=== PATIENT | female | born 1985 | race Caucasian/White ===

== ENCOUNTER 2025-09-08 14:33 | Emergency (ER) | payer SELFPAY ==
[2025-09-08 14:35] VITALS: BP 124/87; PULSE 98; RESP 16; TEMP 36.8; O2SAT 98
--- NOTE | 2025-09-08 14:49 | ED.RN ---
THIS NURSE INFORMED BY HRO AND [facility] THAT PT. HAD MENTIONED SEEING BLOOD ON HER HANDS, WITH NO OBVIOUS BLOOD NOTED, WELL , TALKING WITH CHERYL
--- NOTE | 2025-09-08 14:50 | ED.RN ---
THIS NURSE INFORMED BY HRO THAT PT. IS SMOKING OUTSIDE THE DEPARTMENT AND THAT HE IS GOING TO CHECK ON HER.
--- NOTE | 2025-09-08 15:17 | ED.RN ---
PT. NAME CALLED IN ED TRIAGE AND OUTSIDE OF DEPARTMENT DOORS. LWBS AT 1517. REGISTRATION NOTIFIED.
== END 2025-09-08 15:16 | disposition left against medical advice (07) ==
LOC: ED 15:22
DX: Z53.21 Procedure and treatment not carried out due to patient leaving prior to being seen by health care provider (principal)
CPT/HCPCS: 99281

== ENCOUNTER 2025-09-15 09:21 | Inpatient (IN) | payer MEDICAID, SELFPAY ==
[2025-09-15] VITALS (20 sets, daily range): BP systolic 92–142; BP diastolic 53–110; PULSE 80–94; RESP 14–22; TEMP 36.6–37.1; O2SAT 95–100; BMI 29.1; BMI 29.5
--- NOTE | 2025-09-15 09:33 | RAD_ITS ---
PROCEDURE: CHEST 1 VIEW (PORTABLE) 09/15/2025 REASON FOR EXAM: OD TECHNIQUE: Frontal view of the chest. COMPARISON: None. RAD/Chest 1 View (Portable) IMPRESSION: Lungs appear clear. No pleural effusion or pneumothorax is noted. The cardiomediastinal silhouette is within the normal range. No significant osseous abnormality is noted. Negative examination. Reading Location: [place] [address]
--- NOTE | 2025-09-15 09:34 | EKG12_ITS ---
Test Reason : OD Blood Pressure : */* mmHG Vent. Rate : 87 BPM Atrial Rate : 87 BPM P-R Int : 132 ms QRS Dur : 78 ms QT Int : 382 ms P-R-T Axes : 72 69 39 degrees QTcB Int : 459 ms Normal sinus rhythm Possible Left atrial enlargement Borderline ECG No previous ECGs available Confirmed by Lencho Rueda ([id number]), assistant editor JASWINDER COLON ([id number]) on 09/19/2025 11:40:16 AM Also confirmed by Lencho Rueda ([id number]), assistant editor JASWINDER COLON ([id number]) on 09/20/2025 10:10:34 AM Referred By: CLAUDIA Confirmed By: Lencho Rueda
--- NOTE | 2025-09-15 09:37 | EX.ED.VIS.PS ---
HPI HPI - Psych History of Present Illness Chief Complaint: Mental Health Narrative Narrative: Pt is a 40-year-old female who is presenting this morning with suicidal, homicidal, and psychosis. Patient took a large amount of sleeping medicine that contained 50 mg of Benadryl last evening. Patient presented by EMS. Patient states that she took a half a bottle of Benadryl last night around 10 PM. Patient is evaluated in the ER approximately 12 hours later. Patient has unknown reason why she took the medicine. Patient says that she has tried her to kill herself in the past, she was chronically her self last night. There was comments made by EMS that she was making homicidal threats to her ex-. Also EMS reported that patient is having episodes of psychosis, stating that the government is out to get her, there is other agencies that are hunting her, and other delusional thoughts. For me, patient is somnolent, pleasant, GCS 14, ANO x 3. 1 for eye closure she was sleeping when I walked into the room but open up her eyes to verbal stimuli. Patient states she is having vomiting, No headache or neck pain. No chest pain or shortness of breath. No significant abdominal pain. No other acute complaints. No falls that she is aware of. Patient states that she has a history of depression and anxiety. Patient says that she is somewhat compliant with her medication. Patient states she is from her , she has 3 children. Patient currently not working. No alcohol. She smokes half a pack of cigarettes a day. No illicit drug use. Patient has tried herself before. Patient denies any other medication that she overdosed on today. Patient did not cut herself. Patient arrived by EMS. Unknown who called 911. REVIEW OF SYSTEMS: Unless otherwise stated in this report the patient's positive and negative responses for review of systems for constitutional, eyes, ENT, cardiovascular, respiratory, gastrointestinal, neurological, , musculoskeletal, and integument systems and related systems to the presenting problem are either stated in the history of present illness or were not pertinent or were negative for the symptoms and/or complaints related to the presenting medical problem. Nurse's notes and vital signs reviewed. The patient is not hypoxic. Vital signs reviewed and patient is not hypoxic. General: The patient appears well and in no apparent distress. Patient is resting comfortably on cart. Not toxic, lethargic, or listless. Skin: Warm, dry, no pallor noted. There is no rash noted. Patient has multiple abrasions on bilateral knees, no swelling, no ecchymosis, no pain. Patient's unknown how these abrasions were on her knees. Head: Normocephalic, atraumatic; patient has no scalp hematoma. No midline or paracervical tenderness palpation. Forage of motion of cervical spine no difficulty. Eye: Normal conjunctiva, no drainage, EOMI. PERRL. 4/2 equal, bilateral. Ears, Nose, Mouth, and Throat: oral mucosa is moist. Nares patent. Mouth without vesicles. No hemotympanum, alexander signs, raccoon eyes. Cardiovascular: Regular Rate and Rhythm, no murmurs, gallops, or rubs Respiratory: Patient is in no distress, no accessory muscle use, lungs are clear to auscultation, no wheezing, rales or rhonchi Back: non-tender, no CVA tenderness bilaterally to percussion. NO CTLS midline or paraspinal tenderness to palpation. GI: Soft, obese, no flank pain bilateral, no peritoneal signs, no tenderness to palpation, no masses appreciated. No rebound, guarding, or rigidity noted. No midepigastric tenderness to palpation, no peritoneal signs, abdomen soft, Musculoskeletal: The patient has full range of motion of all extremities and joints with no difficulty. Patient has no motor, no sensory deficits. Neurological: A&O x4, normal speech, no focal neurological deficits. Psychiatric: Cooperative, flat affect; currently not hallucinating, delusional, paranoid PFSH PFSH Home Medications ?Medication ?Instructions ?Recorded ?Last Taken ?Type NK 09/15/25 Unknown History Allergy/AdvReac Type Severity Reaction Status Date / Time codeine AdvReac Mild BLOATING Verified 09/15/25 09:22 Penicillins (PCN) AdvReac Mild BLOATING Verified 09/15/25 09:22 EXAM Physical Exam Const Vital Signs: 09/15/25 09:22 09/15/25 11:21 Temperature 98.2 F Temperature Source Oral Pulse Rate 88 84 Respiratory Rate 14 14 Blood Pressure 136/59 H 129/89 H Blood Pressure Mean 84 102 Pulse Ox 97 99 Oxygen Delivery Method Room Air Room Air MDM MDM MDM Narrative Medical decision making narrative: Patient seen and examined: IV, labs, urine, tox protocol. Differential diagnosis includes but is not limited to: Suicidal ideation, homicidal ideation, psychosis, paranoia, dehydration, MARIAN, liver failure, kidney failure, dehydration, electrolyte abnormality, Relevant laboratory interpretation: Patient's CK is 3000. Urine drug screen is positive for benzos, patient denies taking any type of benzos. Radiological studies: Chest x-ray shows no acute cardiopulmonary disease, no infiltrate, no effusion. X-ray was reviewed independently by Dr. Gan Reevaluation: Patient felt somewhat better after IV fluids and Zofran. Patient has not had vomiting in the ER. EKG interpretation. Normal sinus rhythm at 87 beats a minute. Normal axis deviation. No acute ST elevation, no acute ectopy. QTc of 459. EKG was reviewed independently by Dr. Gan Social barriers to healthcare: There are no food insecurities, there is no issue with transportation, there are no insurance barriers Disposition: Patient will be admitted for observation to ICU for intentional overdose, psychosis, suicidal, homicidal, Patient has been medically cleared. Case was reviewed with poison control. Recommendations from poison control is to observe patient for up to 24 hours. Patient could have taken approximately 2500 mg of Benadryl, unknown time. Repeat EKG in several hours. 1125 patient will be admitted to the ICU to Dr. Perez Critical care time 33 minutes exclusive from separate billable procedures that were performed. The following was considered in the determination of critical care but not limited to the level of medical decision making, intensive cardiac and/or respiratory monitoring, frequent vital sign monitoring, evaluation of laboratory studies, evaluation of radiographic studies, oxygen monitoring, and constant monitoring and speaking to family at bedside Lab Data Labs: Laboratory Results - last 24 hr 09/15/25 09/15/25 09/15/25 09:32 09:45 09:49 WBC 17.1 H RBC 4.92 Hgb 14.4 Hct 43.5 MCV 88.4 MCH 29.3 MCHC 33.1 RDW Std Deviation 47.6 H RDW Coeff of Lacie 14.7 H Plt Count 196 MPV 11.0 Immature Gran % (Auto) 0.300 Neut % (Auto) 79.3 H Lymph % (Auto) 13.4 L [place] % (Auto) 6.7 Eos % (Auto) 0.1 Baso % (Auto) 0.2 Absolute Neuts (auto) 13.6 H Absolute Lymphs (auto) 2.29 Nucleated RBC % 0 Total Creatine Kinase 3096 H TSH 2.010 Serum , Qual NEGATIVE Urine Color Yellow Urine Clarity Clear Urine pH 6.0 Ur Specific [place] 1.020 Urine Protein 30 H Urine Glucose (UA) Normal Urine Ketones 15 H Urine Occult Blood 25 H Urine Nitrite Negative Urine Bilirubin Negative Urine Urobilinogen Normal Ur Leukocyte Esterase Negative Urine RBC 0 SEEN Urine WBC 0 SEEN Ur Squamous Epith Cells 0-5 SEEN Urine Bacteria 0 SEEN Urine Mucus 0 SEEN Urine Opiates Screen NEGATIVE U Buprenorphine Qual NEGATIVE Ur Oxycodone Screen NEGATIVE Urine Methadone Screen NEGATIVE Urine Fentanyl Screen NEGATIVE Acetaminophen < 5.0 L Ur Barbiturates Screen NEGATIVE Ur Phencyclidine Scrn NEGATIVE Ur Amphetamines Screen NEGATIVE U Benzodiazepines Scrn PRESUMPTIVE POSITIVE Urine Cocaine Screen NEGATIVE U Cannabinoids Screen NEGATIVE Ethyl Alcohol < 10.1 09/15/25 11:00 WBC RBC Hgb Hct MCV MCH MCHC RDW Std Deviation RDW Coeff of Lacie Plt Count MPV Immature Gran % (Auto) Neut % (Auto) Lymph % (Auto) [place] % (Auto) Eos % (Auto) Baso % (Auto) Absolute Neuts (auto) Absolute Lymphs (auto) Nucleated RBC % Total Creatine Kinase TSH Serum , Qual NEGATIVE Urine Color Urine Clarity Urine pH Ur Specific [place] Urine Protein Urine Glucose (UA) Urine Ketones Urine Occult Blood Urine Nitrite Urine Bilirubin Urine Urobilinogen Ur Leukocyte Esterase Urine RBC Urine WBC Ur Squamous Epith Cells Urine Bacteria Urine Mucus Urine Opiates Screen U Buprenorphine Qual Ur Oxycodone Screen Urine Methadone Screen Urine Fentanyl Screen Acetaminophen Ur Barbiturates Screen Ur Phencyclidine Scrn Ur Amphetamines Screen U Benzodiazepines Scrn Urine Cocaine Screen U Cannabinoids Screen Ethyl Alcohol Radiography Diagnostic Testing: Clinical Impression(s) from Imaging Studies Chest X-Ray 09/15/25 09:33 IMPRESSION: Lungs appear clear. No pleural effusion or pneumothorax is noted. The cardiomediastinal silhouette is within the normal range. No significant osseous abnormality is noted. Negative examination. Reading Location: [place] [id number] Discharge Plan Triage Chief Complaint: Mental Health ED Provider: Chad Gan Dx/Rx/DC Orders Clinical Impression: Intentional overdose, Rhabdomyolysis, Abrasion of both knees, Suicidal ideations, Psychosis, Paranoia Prescriptions: No Action NK Primary Care Provider: Care Physician,No Primary Referrals: Care Physician,No Primary [Primary Care Provider, Medical] Print Language: Croatian
[2025-09-15] MEDS: 0.9% Normal Saline (500mL Bag) 500 ML 999 ML IV (09:51)
--- NOTE | 2025-09-15 09:53 | ED.RN ---
CAlled poison control. HAve to watch pt for seizures. Administer Benzos if seizes. Recommendation of observation for a minimum of 6 hours but more recommending overnight stay. Approximate amount of consumption is 2500mg
[2025-09-15 10:01] LABS: Hematocrit 43.5 % (37-47); Hemoglobin 14.4 g/dL (12.0-15.0); Immature Granulocytes Count 0.050 X10^3/uL (0.0-0.0); Mean Corp Hgb Conc 33.1 g/dL (32-36); Mean Corpuscular Volume 88.4 fL (81-99); Mean Platelet Vol. 11.0 fl (6.2-12.0); NRBC Flagged by Analyzer 0 % (0-5); Platelet Count 196 K/mm3 (150-450); RBC Distribution Width CV 14.7 % (11.6-14.6); RBC Distribution Width SD 47.6 fl (35.1-43.9); Red Blood Count 4.92 M/mm3 (4.2-5.4); White Blood Count 17.1 K/mm3 (4.4-11.0)
[2025-09-15 10:06] LABS: Barbiturate Urine NEGATIVE (< 200 ng/mL); Benzodiazepine Urine PRESUMPTIVE POSITIVE (< 200 ng/mL); PCP Urine NEGATIVE (< 25 ng/mL); THC Urine NEGATIVE (< 50 ng/mL)
[2025-09-15 10:08] LABS: Acetaminophen (Tylenol) Level < 5.0 ug/mL (8.0-19.0); Alcohol, Blood (Medical)-Serum < 10.1 mg/dL (<=10.0)
[2025-09-15 10:33] LABS: Internal QC Validated? YES +Cl - CLEAR BKGD; Pregnancy, Serum, hCG Quali. NEGATIVE Negative
[2025-09-15 10:34] LABS: CPK Total, Creatine Kinase 3096 U/L (24-195)
[2025-09-15 11:08] LABS: Mucous, Urine 0 SEEN /hpf (<or=2+); Red Blood Cells-Urine 0 SEEN /hpf (0-5)
[2025-09-15 11:10] LABS: Color, Urine Yellow (Yellow); Glucose, Dipstick Normal (Normal); Ketone-Dipstick 15 mg/dl (Negative); Leukocyte Esterase-Dipstick Negative /ul (Negative); Nitrite-Dipstick Negative (Negative); Occult Blood-Urine 25 /ul (Negative); Protein-Dipstick 30 mg/dl (Negative); Specific Gravity, Urine 1.020 (1.002-1.030); Urine Bilirubin Dipstick Negative (Negative)
[2025-09-15 11:17] LABS: Squamous Epithelial Cells - UA 0-5 SEEN /hpf (5-10)
[2025-09-15 11:19] LABS: Internal QC Validated? YES +Cl - CLEAR BKGD; Pregnancy, Serum, hCG Quali. NEGATIVE Negative
[2025-09-15] MEDS: 0.9% Normal Saline (1000mL) 1,000 ML 999 ML IV (11:20)
--- NOTE | 2025-09-15 11:28 | HP.PCM.HOS_ITS ---
HPI - General General Date of Admission: 09/15/25 Date of Service: 09/15/25 Chief Complaint: Altered mental status HPI Narrative KARY BAKER, is a 40 F with past medical history significant for previous evaluation for suicidal attempt as well as psychotic episodes who was brought to the emergency department in an apparent suicide attempt. Patient was reported to have taken a bottle of sleep aid containing 50 mg of Benadryl. She apparently took 25 tablets. She presented to the emergency department 12 hours later after having made homicidal threats to her ex-. Patient was evaluated in the ED, Poison control was called and recommendation was made for patient to be admitted to the intensive care unit for subsequent eval. Patient was also found to have elevated CPK levels consistent with rhabdo. Admitted to the intensive care unit for subsequent [facility] Home Medications ?Medication ?Instructions ?Recorded ?Last Taken ?Type NK 09/15/25 Unknown History Allergy/AdvReac Type Severity Reaction Status Date / Time codeine AdvReac Mild BLOATING Verified 09/15/25 09:22 Penicillins (PCN) AdvReac Mild BLOATING Verified 09/15/25 09:22 Social History Smoking Status: Current every day smoker tobacco type: cigarettes ROS ROS Narrative Difficult to obtain in view of patient being somnolent Patient's Goals Of Care . What would you like to achieve or improve as a result of your hospital stay?: U mala to obtain given patient being somnolent Vital Signs Vital Signs Vital Signs: 09/15/25 09:22 09/15/25 11:21 Temperature 98.2 F Temperature Source Oral Pulse Rate 88 84 Respiratory Rate 14 14 Blood Pressure 136/59 H 129/89 H Blood Pressure Mean 84 102 Pulse Ox 97 99 Oxygen Delivery Method Room Air Room Air Weight Weight: 77 kg Body Mass Index (BMI) 29.1 Physical Exam Narrative GENERAL: Lethargic but easily aroused HEENT: Atraumatic; normocephalic EYES; Anicteric, Normal Conjunctiva NECK; supple, normal thyroid, RESPIRATORY: Diminished to auscultation CARDIOVASCULAR: Regular S1 S2, GI: soft, normoactive bowel sounds, : No Renal angle tenderness; EXTREMITIES: No edema, no clubbing, MUSCULOSKELETAL: no muscle wasting NEURO: Lethargic but appears to move all extremities with no lateralizing signs. SKIN: Abrasions on lower extremity PSYCH; lethargic Results Lab / Micro Data 09/15/25 09:45 Labs: Laboratory Results - last 24 hr 09/15/25 09:32: Urine Color Yellow, Urine Clarity Clear, Urine pH 6.0, Ur Specific [place] 1.020, Urine Protein 30 H, Urine Glucose (UA) Normal, Urine Ketones 15 H, Urine Occult Blood 25 H, Urine Nitrite Negative, Urine Bilirubin Negative, Urine Urobilinogen Normal, Ur Leukocyte Esterase Negative, Urine RBC 0 SEEN, Urine WBC 0 SEEN, Ur Squamous Epith Cells 0-5 SEEN, Urine Bacteria 0 SEEN, Urine Mucus 0 SEEN, Urine Opiates Screen NEGATIVE, U Buprenorphine Qual NEGATIVE, Ur Oxycodone Screen NEGATIVE, Urine Methadone Screen NEGATIVE, Urine Fentanyl Screen NEGATIVE, Ur Barbiturates Screen NEGATIVE, Ur Phencyclidine Scrn NEGATIVE, Ur Amphetamines Screen NEGATIVE, U Benzodiazepines Scrn PRESUMPTIVE POSITIVE, Urine Cocaine Screen NEGATIVE, U Cannabinoids Screen NEGATIVE 09/15/25 09:45: WBC 17.1 H, RBC 4.92, Hgb 14.4, Hct 43.5, MCV 88.4, MCH 29.3, MCHC 33.1, RDW Std Deviation 47.6 H, RDW Coeff of Lacie 14.7 H, Plt Count 196, MPV 11.0, Immature Gran % (Auto) 0.300, Neut % (Auto) 79.3 H, Lymph % (Auto) 13.4 L, [place] % (Auto) 6.7, Eos % (Auto) 0.1, Baso % (Auto) 0.2, Absolute Neuts (auto) 13.6 H, Absolute Lymphs (auto) 2.29, Nucleated RBC % 0, Total Creatine Kinase 3096 H, TSH 2.010, Acetaminophen < 5.0 L, Ethyl Alcohol < 10.1 09/15/25 09:49: Serum , Qual NEGATIVE 09/15/25 11:00: Serum , Qual NEGATIVE Imaging Radiology Impression Chest X-Ray 09/15/25 09:33 IMPRESSION: Lungs appear clear. No pleural effusion or pneumothorax is noted. The cardiomediastinal silhouette is within the normal range. No significant osseous abnormality is noted. Negative examination. Reading Location: [place] [address] Assessment & Plan Assessment/Plan (1) Psychosis: (2) Rhabdomyolysis: (3) Intentional overdose: (4) Paranoia: (5) Suicidal ideations: PLAN: Plan Patient is a 40-year-old admitted with altered mental status. 1. Acute toxic encephalopathy ? From intentional drug overdose in an apparent suicide attempt. Patient admitted to the intensive care unit for observationper Poison control recommendation. 2. Intentional drug overdose?in an apparent suicide attempt Patient has been admitted to the intensive care unit suicide precautions initiated 3. Psychosis and paranoia ? Patient to be evaluated by mental health when medically stable 4. Acute rhabdomyolysis ? Admitted to monitored bed started on IV hydration. Repeat CPK levels and BMP ordered for a.m. 5.Tobacco dependence ? Patient to be counseled on cessation when much more awake 6. DVT prophylaxis ? Low risk Charges/Coding Visit Charges Inpatient E&M: 47982 Init Hosp L2
[2025-09-15] MEDS: 0.9% Normal Saline (1000mL) 1,000 ML 150 ML IV ×2 (12:26→17:44)
[2025-09-15] MEDS: Nicotine (PBKC) 14 MG Patch TD (17:44)
[2025-09-15] MEDS: Nicotine (PBKC) 21 MG Patch TD (20:48)
[2025-09-16] VITALS (25 sets, daily range): BP systolic 97–148; BP diastolic 51–92; PULSE 64–88; RESP 17–25; TEMP 36.7–37; O2SAT 94–99; BMI 29.6; BMI 29.5
[2025-09-16] MEDS: 0.9% Normal Saline (1000mL) 1,000 ML 150 ML IV ×4 (01:32→21:31)
[2025-09-16] MEDS: 0.9% Saline Lock 10 ML Syringe IV (04:49)
[2025-09-16 05:06] LABS: Hematocrit 36.5 % (37-47); Hemoglobin 11.8 g/dL (12.0-15.0); Immature Granulocytes Count 0.020 X10^3/uL (0.0-0.0); Mean Corp Hgb Conc 32.3 g/dL (32-36); Mean Corpuscular Volume 89.7 fL (81-99); Mean Platelet Vol. 11.7 fl (6.2-12.0); NRBC Flagged by Analyzer 0 % (0-5); POSITIVE COUNT YES; RBC Distribution Width CV 15.0 % (11.6-14.6); RBC Distribution Width SD 49.8 fl (35.1-43.9); Red Blood Count 4.07 M/mm3 (4.2-5.4); White Blood Count 9.9 K/mm3 (4.4-11.0)
[2025-09-16 05:34] LABS: Anion Gap 10 (5-15); BUN 11 mg/dL (4-19); BUN/Creat Ratio 13.6 RATIO (10-20); CPK Total, Creatine Kinase 1244 U/L (24-195); Calcium,Total 7.8 mg/dL (7.6-11.0); Carbon Dioxide 21.4 mmol/L (21.0-32.0); Chloride 109 mmol/L (98-108); Estimated Creatinine Clearance 93.88 ml/min (50-250); Glucose 98 mg/dL (70-99); Magnesium 2.2 mg/dL (1.5-2.2); Potassium 3.9 mmol/L (3.3-5.1)
[2025-09-16 05:38] LABS: Differential Indicated SCAN CRITERIA MET
[2025-09-16 05:40] LABS: Differential Comment SCANNED
--- NOTE | 2025-09-16 07:28 | PCM.PN.HOSP ---
Reason for Visit Chief Complaint: Altered mental status Subjective Subjective Patient is a 40-year-old lady admitted in an intentional drug overdose of Benadryl. Was found to have rhabdomyolysis admission. Admitted to the intensive care unit where patient is currently being managed. Seen this a.m. patient is restless complaining of epigastric pain as well as pain in the knee and hips. Patient is however able to ambulate Objective Data Objective Data Vital Signs: Vital Signs Temp Pulse Resp BP Pulse Ox O2 Del Method 98.4 F 79 19 H 107/67 98 Room Air 09/16/25 03:00 09/16/25 07:00 09/16/25 07:00 09/16/25 07:00 09/16/25 07:15 09/16/25 07:15 Oxygen Delivery Method Room Air Weight: 78.6 kg Body Mass Index (BMI) 29.5 Intake & Output: Intake and Output for Last 24 Hours 09/14/25 09/15/25 09/16/25 23:59 23:59 23:59 Intake Total 2295 / 2295 1000 / 1000 Balance 2295 / 2295 1000 / 1000 Lab / Micro Data 09/16/25 04:37 09/16/25 04:37 Labs: Laboratory Results - last 24 hr 09/15/25 09:32: Urine Color Yellow, Urine Clarity Clear, Urine pH 6.0, Ur Specific [place] 1.020, Urine Protein 30 H, Urine Glucose (UA) Normal, Urine Ketones 15 H, Urine Occult Blood 25 H, Urine Nitrite Negative, Urine Bilirubin Negative, Urine Urobilinogen Normal, Ur Leukocyte Esterase Negative, Urine RBC 0 SEEN, Urine WBC 0 SEEN, Ur Squamous Epith Cells 0-5 SEEN, Urine Bacteria 0 SEEN, Urine Mucus 0 SEEN, Urine Opiates Screen NEGATIVE, U Buprenorphine Qual NEGATIVE, Ur Oxycodone Screen NEGATIVE, Urine Methadone Screen NEGATIVE, Urine Fentanyl Screen NEGATIVE, Ur Barbiturates Screen NEGATIVE, Ur Phencyclidine Scrn NEGATIVE, Ur Amphetamines Screen NEGATIVE, U Benzodiazepines Scrn PRESUMPTIVE POSITIVE, Urine Cocaine Screen NEGATIVE, U Cannabinoids Screen NEGATIVE 09/15/25 09:45: WBC 17.1 H, RBC 4.92, Hgb 14.4, Hct 43.5, MCV 88.4, MCH 29.3, MCHC 33.1, RDW Std Deviation 47.6 H, RDW Coeff of Lacie 14.7 H, Plt Count 196, MPV 11.0, Immature Gran % (Auto) 0.300, Neut % (Auto) 79.3 H, Lymph % (Auto) 13.4 L, [place] % (Auto) 6.7, Eos % (Auto) 0.1, Baso % (Auto) 0.2, Absolute Neuts (auto) 13.6 H, Absolute Lymphs (auto) 2.29, Nucleated RBC % 0, Total Creatine Kinase 3096 H, TSH 2.010, Acetaminophen < 5.0 L, Ethyl Alcohol < 10.1 09/15/25 09:49: Serum , Qual NEGATIVE 09/15/25 11:00: Serum , Qual NEGATIVE 09/16/25 04:37: WBC 9.9, RBC 4.07 L, Hgb 11.8 L, Hct 36.5 L, MCV 89.7, MCH 29.0, MCHC 32.3, RDW Std Deviation 49.8 H, RDW Coeff of Lacie 15.0 H, Plt Count TNP, MPV 11.7, Immature Gran % (Auto) 0.200, Neut % (Auto) 54.1, Lymph % (Auto) 37.1, [place] % (Auto) 7.4, Eos % (Auto) 1.0, Baso % (Auto) 0.2, Absolute Neuts (auto) 5.3, Absolute Lymphs (auto) 3.66, Nucleated RBC % 0, Differential Comment SCANNED, Platelet Estimate ADEQUATE, Sodium 140, Potassium 3.9, Chloride 109 H, Carbon Dioxide 21.4, Anion Gap 10, BUN 11, Creatinine 0.80, Estim Creat Clear Calc 93.88, Est GFR (MDRD) Non-Af 96, BUN/Creatinine Ratio 13.6, Glucose 98, Calcium 7.8, Phosphorus 2.6 L, Magnesium 2.2, Total Creatine Kinase 1244 H Radiography Diagnostic Testing: Radiology Impression Chest X-Ray 09/15/25 09:33 IMPRESSION: Lungs appear clear. No pleural effusion or pneumothorax is noted. The cardiomediastinal silhouette is within the normal range. No significant osseous abnormality is noted. Negative examination. Reading Location: [place] [address] Physical Exam Narrative GENERAL: Restless HEENT: Atraumatic; normocephalic EYES; Anicteric, Normal Conjunctiva NECK; supple, normal thyroid, RESPIRATORY: Diminished to auscultation CARDIOVASCULAR: Regular S1 S2, GI: soft, normoactive bowel sounds, : No Renal angle tenderness; EXTREMITIES: No edema, no clubbing, MUSCULOSKELETAL: no muscle wasting NEURO: Lethargic but appears to move all extremities with no lateralizing signs. SKIN: Abrasions on lower extremities?knees PSYCH; lethargic Assessment & Plan Assessment/Plan (1) Psychosis: (2) Rhabdomyolysis: (3) Intentional overdose: (4) Paranoia: (5) Suicidal ideations: PLAN: Plan Patient is a 40-year-old admitted with altered mental status. 1. Acute toxic encephalopathy ? From intentional drug overdose in an apparent suicide attempt. Patient admitted to the intensive care unit for observationper Poison control recommendation. ? 09/16/2025 remains in ICU with a sitter by the side 2. Intentional drug overdose?in an apparent suicide attempt Patient has been admitted to the intensive care unit suicide precautions initiated 3. Psychosis and paranoia ? Patient to be evaluated by mental health when medically stable 4. Acute rhabdomyolysis ? Admitted to monitored bed started on IV hydration. Repeat CPK levels and BMP ordered for a.m. ? CPK levels remain elevated we will continue with current IV 5.Tobacco dependence ? Patient to be counseled on cessation when much more awake 6. DVT prophylaxis ? Low risk 7. Suspected gastritis -patient placed on PPI Charges/Coding Visit Charges Inpatient E&M: 01243 Subs Hosp L2
[2025-09-16] MEDS: Nicotine (PBKC) 21 MG Patch TD (09:29)
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
--- NOTE | 2025-09-16 10:44 | CASEMGMT ---
Social Work Return call from [facility] C[facility] and referral made to Barbie Em. JOSHUA Townsend
[2025-09-16 13:47] LABS: CPK Total, Creatine Kinase 1038 U/L (24-195)
[2025-09-16] MEDS: Na Biphos/Potassium Phosphate PACKET 1 PACKET PO (21:32)
[2025-09-16] MEDS: Mag /Aluminum/Simeth WCH UDC 30 ML ORAL.SUSP PO (22:23)
[2025-09-17] VITALS (11 sets, daily range): BP systolic 101–127; BP diastolic 55–86; PULSE 67–94; RESP 18–22; TEMP 36.6–37.1; O2SAT 93–98; BMI 29.5
[2025-09-17 04:25] LABS: Hematocrit 36.7 % (37-47); Hemoglobin 11.7 g/dL (12.0-15.0); Immature Granulocytes Count 0.020 X10^3/uL (0.0-0.0); Mean Corp Hgb Conc 31.9 g/dL (32-36); Mean Corpuscular Volume 91.3 fL (81-99); Mean Platelet Vol. 9.4 fl (6.2-12.0); NRBC Flagged by Analyzer 0 % (0-5); Platelet Count 221 K/mm3 (150-450); RBC Distribution Width CV 15.3 % (11.6-14.6); RBC Distribution Width SD 51.6 fl (35.1-43.9); Red Blood Count 4.02 M/mm3 (4.2-5.4); White Blood Count 7.2 K/mm3 (4.4-11.0)
[2025-09-17 04:51] LABS: CPK Total, Creatine Kinase 855 U/L (24-195)
[2025-09-17 04:58] LABS: Anion Gap 7 (5-15); BUN 5 mg/dL (4-19); BUN/Creat Ratio 7.1 RATIO (10-20); Calcium,Total 8.0 mg/dL (7.6-11.0); Carbon Dioxide 21.8 mmol/L (21.0-32.0); Chloride 110 mmol/L (98-108); Estimated Creatinine Clearance 105.78 ml/min (50-250); Glucose 100 mg/dL (70-99); Potassium 4.0 mmol/L (3.3-5.1)
[2025-09-17] MEDS: 0.9% Normal Saline (1000mL) 1,000 ML 150 ML IV (06:06)
--- NOTE | 2025-09-17 07:07 | NUR.TO.PHY ---
0600 notified of CK level. no new orders at this time.
--- NOTE | 2025-09-17 07:25 | PCM.PN.HOSP ---
Reason for Visit Chief Complaint: Altered mental status Subjective Subjective Patient seen CPK levels continue to decline. Patient is medically stable to be evaluated by crisis for possible placement Objective Data Objective Data Vital Signs: Vital Signs Temp Pulse Resp BP Pulse Ox O2 Del Method 98.6 F 71 20 H 127/75 H 97 Room Air 09/16/25 20:00 09/17/25 07:00 09/17/25 07:00 09/17/25 07:00 09/17/25 07:02 09/17/25 07:02 Oxygen Delivery Method Room Air Weight: 78.6 kg Body Mass Index (BMI) 29.5 Intake & Output: Intake and Output for Last 24 Hours 09/15/25 09/16/25 09/17/25 23:59 23:59 23:59 Intake Total 2295 / 2295 5270 / 5270 1000 / 1000 Balance 2295 / 2295 5270 / 5270 1000 / 1000 Lab / Micro Data 09/17/25 04:15 09/17/25 04:15 Labs: Laboratory Results - last 24 hr 09/16/25 12:55: Total Creatine Kinase 1038 H 09/17/25 04:15: WBC 7.2, RBC 4.02 L, Hgb 11.7 L, Hct 36.7 L, MCV 91.3, MCH 29.1, MCHC 31.9 L, RDW Std Deviation 51.6 H, RDW Coeff of Lacie 15.3 H, Plt Count 221, MPV 9.4, Immature Gran % (Auto) 0.300, Neut % (Auto) 43.9 L, Lymph % (Auto) 46.9 H, [place] % (Auto) 7.0, Eos % (Auto) 1.5, Baso % (Auto) 0.4, Absolute Neuts (auto) 3.1, Absolute Lymphs (auto) 3.36, Nucleated RBC % 0, Sodium 138, Potassium 4.0, Chloride 110 H, Carbon Dioxide 21.8, Anion Gap 7, BUN 5, Creatinine 0.71, Estim Creat Clear Calc 105.78, Est GFR (MDRD) Non-Af 110, BUN/Creatinine Ratio 7.1 L, Glucose 100 H, Calcium 8.0, Total Creatine Kinase 855 H Physical Exam Narrative GENERAL: Restless HEENT: Atraumatic; normocephalic EYES; Anicteric, Normal Conjunctiva NECK; supple, normal thyroid, RESPIRATORY: Diminished to auscultation CARDIOVASCULAR: Regular S1 S2, GI: soft, normoactive bowel sounds, : No Renal angle tenderness; EXTREMITIES: No edema, no clubbing, MUSCULOSKELETAL: no muscle wasting NEURO: Lethargic but appears to move all extremities with no lateralizing signs. SKIN: Abrasions on lower extremities?knees PSYCH; lethargic Assessment & Plan Assessment/Plan (1) Psychosis: (2) Rhabdomyolysis: (3) Intentional overdose: (4) Paranoia: (5) Suicidal ideations: PLAN: Plan Patient is a 40-year-old admitted with altered mental status. 1. Acute toxic encephalopathy ? From intentional drug overdose in an apparent suicide attempt. Patient admitted to the intensive care unit for observationper Poison control recommendation. ? 09/16/2025 remains in ICU with a sitter by the side ? 09/17/2025; patient back to baseline; CPK levels continue to decline. Patient is medically stable to be evaluated by crisis for possible placement 2. Intentional drug overdose?in an apparent suicide attempt Patient has been admitted to the intensive care unit suicide precautions initiated ? 09/17/2025; patient to be evaluated by psych for possible placement 3. Psychosis and paranoia ? Patient to be evaluated by mental health when medically stable 4. Acute rhabdomyolysis ? Admitted to monitored bed started on IV hydration. Repeat CPK levels and BMP ordered for a.m. ? CPK levels remain elevated we will continue with current IV ? 09/17/2025; CPK levels continues to decline 5.Tobacco dependence ? Patient to be counseled on cessation when much more awake 6. DVT prophylaxis ? Low risk 7. Suspected gastritis -patient placed on PPI Time spent in the patient's overall evaluation,decision-making process, review of diagnostic data, adjustment of management, discussion with other providers, nursing nursing and ancillary staff involved in patient's care documentation, 35 Minutes Charges/Coding Visit Charges Inpatient E&M: 04181 Subs Hosp L2
[2025-09-17] MEDS: Nicotine (PBKC) 21 MG Patch TD (09:23)
[2025-09-17] MEDS: Na Biphos/Potassium Phosphate PACKET 1 PACKET PO (09:23)
--- NOTE | 2025-09-17 10:17 | DS.PCM_ITS ---
Providers Date of Admission: 09/15/25 Date of Discharge: 09/17/25 Primary Care Physician: No Primary Care Phys Reason For Visit: BENADRYL OVERDDOSE Diagnosis Discharge Diagnosis (1) Psychosis: Status: Acute Code(s): F29 - Unspecified psychosis not due to a substance or known physiological condition (2) Rhabdomyolysis: Status: Acute Code(s): M62.82 - Rhabdomyolysis (3) Intentional overdose: Status: Acute Code(s): T50.902A - Poisoning by unspecified drugs, medicaments and biological substances, intentional self-harm, initial encounter (4) Paranoia: Status: Acute Code(s): F22 - Delusional disorders (5) Suicidal ideations: Status: Acute Code(s): R45.851 - Suicidal ideations Plan Patient is a 40-year-old admitted with altered mental status. 1. Acute toxic encephalopathy ? From intentional drug overdose in an apparent suicide attempt. Patient admitted to the intensive care unit for observationper Poison control recommendation. ? 09/16/2025 remains in ICU with a sitter by the side ? 09/17/2025; patient back to baseline; CPK levels continue to decline. Patient is medically stable to be evaluated by crisis for possible placement 2. Intentional drug overdose?in an apparent suicide attempt Patient has been admitted to the intensive care unit suicide precautions initiated ? 09/17/2025; patient to be evaluated by psych for possible placement ? Patient was accepted for transfer to a facility in [facility] and new pink slip was written prior to patient being transferred 3. Psychosis and paranoia ? Patient to be evaluated by mental health when medically stable 4. Acute rhabdomyolysis ? Admitted to monitored bed started on IV hydration. Repeat CPK levels and BMP ordered for a.m. ? CPK levels remain elevated we will continue with current IV ? 09/17/2025; CPK levels continues to decline 5.Tobacco dependence ? Patient to be counseled on cessation when much more awake 6. DVT prophylaxis ? Low risk 7. Suspected gastritis -patient placed on PPI Time spent in the patient's overall evaluation,decision-making process, review of diagnostic data, adjustment of management, discussion with other providers, nursing nursing and ancillary staff involved in patient's care documentation, 35 Minutes Medications at Discharge Home Medications NK 09/15/25 Physical Exam Narrative GENERAL: Patient in no apparent distress HEENT: Atraumatic; normocephalic EYES; Anicteric, Normal Conjunctiva NECK; supple, normal thyroid, RESPIRATORY: Diminished to auscultation CARDIOVASCULAR: Regular S1 S2, GI: soft, normoactive bowel sounds, : No Renal angle tenderness; EXTREMITIES: No edema, no clubbing, MUSCULOSKELETAL: no muscle wasting NEURO: Oriented to place and person SKIN: Abrasions on lower extremities?knees PSYCH; flat affect Weight / BMI Weight Weight: 78.6 kg Body Mass Index (BMI) 29.5 ABG / Lab / Microbiology Data 09/17/25 04:15 09/17/25 04:15 Laboratory: Laboratory Results - last 24 hr 09/16/25 12:55: Total Creatine Kinase 1038 H 09/17/25 04:15: WBC 7.2, RBC 4.02 L, Hgb 11.7 L, Hct 36.7 L, MCV 91.3, MCH 29.1, MCHC 31.9 L, RDW Std Deviation 51.6 H, RDW Coeff of Lacie 15.3 H, Plt Count 221, MPV 9.4, Immature Gran % (Auto) 0.300, Neut % (Auto) 43.9 L, Lymph % (Auto) 46.9 H, [place] % (Auto) 7.0, Eos % (Auto) 1.5, Baso % (Auto) 0.4, Absolute Neuts (auto) 3.1, Absolute Lymphs (auto) 3.36, Nucleated RBC % 0, Sodium 138, Potassium 4.0, Chloride 110 H, Carbon Dioxide 21.8, Anion Gap 7, BUN 5, Creatinine 0.71, Estim Creat Clear Calc 105.78, Est GFR (MDRD) Non-Af 110, BUN/Creatinine Ratio 7.1 L, Glucose 100 H, Calcium 8.0, Total Creatine Kinase 855 H D/C Instructions DC O2, CPAP, BIPAP Needs Home O2 Discharge instructions: No Patient's Goals Of Care - F/U Goals Reviewed Goals of care reviewed with patient: Yes - No change Meaningful Use Info Meaningful Use Meaningful Use Diagnoses (Choose all that apply): None applicable Discharge Plan Admission Admit Date/Time: 09/15/25 11:26 Attending Provider: David Perez Primary Care Provider: Care Physician,No Primary Discharge Orders/Prescriptions Prescriptions: No Action NK Referrals / Follow Up: Care Physician,No Primary [Primary Care Provider, Medical] Disposition Disposition (needs filled in before D/C Order can be placed): Psychiatric Hospital or Unit Charges/Coding Visit Charges Inpatient E&M: 39737 Disch Hosp >30min
== END 2025-09-17 12:50 | DRG 817 ==
LOC: ED 11:43 → ICU 11:45
PROVIDERS: Admitting Provider Internal Medicine; Emergency Provider Emergency Medicine; Visit Provider Internal Medicine
DX: T45.0X2A Poisoning by antiallergic and antiemetic drugs, intentional self-harm, initial encounter (principal); G92.8 Other toxic encephalopathy; M62.82 Rhabdomyolysis; F29 Unspecified psychosis not due to a substance or known physiological condition; F17.210 Nicotine dependence, cigarettes, uncomplicated; S80.211A Abrasion, right knee, initial encounter; F41.9 Anxiety disorder, unspecified; S80.212A Abrasion, left knee, initial encounter; K29.70 Gastritis, unspecified, without bleeding; F22 Delusional disorders
CPT/HCPCS: 71045; 80048; 80143; 80307; 81001; 82077; 82550; 83735; 84100; 84443; 84703; 85025; 93005; 94762; 99285; 99406; A4216